=== PATIENT | female | born 1970 | race Caucasian/White ===

== ENCOUNTER 2017-07-07 14:32 | Emergency (ER) | payer SELFPAY ==
[~2017-07-07] VITALS: Ht 160 cm; Wt 50.0 kg
[2017-07-07 14:32] VITALS: BP 120/62; PULSE 100; RESP 20; TEMP 99.4; O2SAT 100
--- NOTE | 2017-07-07 16:46 | PD ---
HPI Chief Complaint: Cold / Flu Symptoms Time Seen by Provider: 16:31 Travel History International Travel<30 days: No Contact w/Intl Traveler<30days: No Traveled to known affect area: No History of Present Illness HPI 56 year old female presents to the emergency department complaining of a nonproductive cough, wheezing, shortness of breath since Monday. Reports chest tightness. Denies chest pain. Reports nasal congestion and throat irritation. Reports itchy ears. Denies ear pain. Reports fever of 102.0 and Monday. Reports body aches. Has history of bronchitis. Denies history of asthma or COPD. Has been taking Goody powder for symptom management. No known relieving or aggravating factors. No one else with similar symptoms. Discussed primary care provider. No known allergies. Denies significant past medical history. No other medical complaints. No other modifying factors or associated signs and symptoms. PFSH Past Medical History Anxiety: Yes Depression: Yes Medical other: Yes (PTSD) Tetanus Vaccination: Unknown Influenza Vaccination: No ?: Not Past Surgical History Appendectomy: Yes Cholecystectomy: Yes Hysterectomy: Yes Tonsillectomy: Yes Other Surgery: Yes (breast augmentation) Social History Alcohol Use: No Tobacco Use: Yes (/2 ppd) Substance Use: No Allergies-Medications (Allergen,Severity, Reaction): Coded Allergies: No Known Allergies (Unverified , 07/07/17) Reported Meds & Prescriptions Reported Meds & Active Scripts Active Tessalon Perles (Benzonatate) 100 Mg Cap 100 Mg PO TID PRN 3 Days Deltasone (Prednisone) 20 Mg Tab 40 Mg PO DAILY 4 Days start 07/08/2017 Ventolin Hfa 18 GM Inh (Albuterol Sulfate) 90 Mcg/Act Aer 2 Puff INH Q4-6H PRN Review of Systems Except as stated in HPI: all other systems reviewed are Neg Physical Exam Narrative GENERAL: Well-nourished, well-developed female patient, in no acute distress; afebrile, nontoxic-appearing SKIN: Warm and dry. HEAD: Atraumatic. Normocephalic. EYES: Pupils equal and round. No scleral icterus. No injection or drainage. ENT: Mucosa pink and moist. No erythema or exudates. No uvular edema. No uvular , palatal, or tonsillar deviation. Airway patent. Nares without nasal blood, purulent drainage. EARS: Bilateral pinnae and external canals appear within normal limits. Bilateral tympanic membranes without erythema, dullness or perforation. NECK: Trachea midline. No lymphadenopathy. CARDIOVASCULAR: Regular rate and rhythm. No murmur appreciated. RESPIRATORY: No accessory muscle use. Lungs with mild Wheezing throughout to auscultation. Breath sounds equal bilaterally. No retractions or tachypnea. No Audible wheezing noted. GASTROINTESTINAL: Abdomen soft, non-tender, nondistended. Hepatic and splenic margins not palpable. Bowel sounds are active 4 quadrants. MUSCULOSKELETAL: No obvious deformities. No clubbing. No cyanosis. No edema. NEUROLOGICAL: Awake and alert. Oriented 3. No obvious cranial nerve deficits. Motor grossly within normal limits. Normal speech. Moves all extremities. 5/5 strength to all extremities. PSYCHIATRIC: Appropriate mood and affect; insight and judgment normal. Data Data Last Documented VS Vital Signs Date Time Temp Pulse Resp B/P (MAP) Pulse Ox O2 Delivery O2 Flow Rate FiO2 07/07/17 19:25 07/07/17 18:47 99 21 07/07/17 17:58 3 07/07/17 17:17 105 Room Air 07/07/17 14:32 99.4 Orders Orders Chest, Single Ap (07/07/17 16:46) Prednisone (Deltasone) (07/07/17 17:00) Albuterol Neb (Albuterol Neb) (07/07/17 17:00) Ibuprofen (Motrin) (07/07/17 17:00) Ed Discharge Order (07/07/17 19:01) [facility] Medical Decision Making Medical Screen Exam Complete: Yes Emergency Medical Condition: Yes Medical Record Reviewed: Yes Differential Diagnosis Influenza, bronchitis, pneumonia Narrative Course 46-year-old female with cough/cold/flu symptoms since Monday. He is afebrile and nontoxic appearing. MAXIMUM TEMPERATURE 102.0. Chest x-ray, influenza, abdominal nebulizer, Deltasone, ibuprofen ordered. 1805: Chest x-ray with no acute cardiopulmonary disease. 1810: She reports improvement in symptoms. Denies chest pain or shortness of breath at this time. Lungs are clear and equal throughout with improved breath sounds. 1899: Instructed patient to follow up with primary care provider. Patient verbalizes understanding and agreement with treatment plan. Patient is medically cleared and stable for discharge. Discussed reasons to return to the emergency department. Patient agrees with treatment plan. The patients vital signs are stable and the patient is stable for outpatient follow-up and treatment. Patient discharged home, stable and in no acute distress. Diagnosis Primary Impression: Acute bronchitis Qualified Codes: J20.9 - Acute bronchitis, unspecified Referrals: [facility] Primary Care Physician Patient Instructions: Acute Bronchitis (ED), General Instructions, Safe Use of Cough and Cold Medicines (ED) Departure Forms: Tests/Procedures, Work Release Enter return to work date: Jul 08, 2017 Special Instructions: please excuse from meeting today Additional Instructions: Use Albuterol inhaler as prescribed Take oral steroids as prescribed and complete full course Use Tessalon Perles as prescribed to decrease coughing spasms [id number] decongestants or antihistamines as directed and as needed for symptom management Your cough can last 4-6 weeks Drink plenty of fluids to prevent dehydration Use hot air humidifier to decrease cough exacerbation Turn off ceiling fans and sleep with head of bed elevated Avoid triggers such as second hand smoke, dust, known allergens Follow-up with your primary care provider Return to the emergency department immediately with worsening of symptoms Med/Other Pt SpecificInfo: Prescription(s) given Scripts Benzonatate (Tessalon Perles) 100 Mg Cap 100 MG PO TID Y for COUGH for 3 Days, CAP 0 Refills Prov: Jolie London 07/07/17 Prednisone (Deltasone) 20 Mg Tab 40 MG PO DAILY for 4 Days, #8 TAB 0 Refills start 07/08/2017 Prov: Jolie London 07/07/17 Albuterol 18 GM Inh (Ventolin Hfa 18 GM Inh) 90 Mcg/Act Aer 2 PUFF INH Q4-6H Y for SOB/WHEEZING, #1 INHALER 0 Refills Prov: Jolie London 07/07/17 Disposition: 01 DISCHARGE HOME Condition: Stable Jolie London Jul 07, 2017 16:46
[2017-07-07] MEDS ORDERED: IBUPROFEN 800 MG TAB PO ONE (17:00)
[2017-07-07] MEDS ORDERED: RESP: ALBUTEROL 2.5 MG/3 ML NEB (SCH) INH ONE (17:00)
[2017-07-07] MEDS ORDERED: predniSONE 20 MG TAB PO ONE (17:00)
[2017-07-07 17:10] VITALS: PULSE 98; RESP 20; O2SAT 100
[2017-07-07 17:17] VITALS: BP 105/61; PULSE 105; RESP 22; O2SAT 99
--- NOTE | 2017-07-07 17:51 | RADRPT ---
EXAM DATE/TIME: 07/07/2017 17:21 [place] COMPARISON: No previous studies available for comparison. INDICATIONS : Flu symptoms for 5 days. MEDICAL HISTORY : None. SURGICAL HISTORY : None. ENCOUNTER: Initial ACUITY: 4 - 6 days PAIN SCORE: 7/10 LOCATION: all over FINDINGS: A single view of the chest demonstrates the lungs to be symmetrically aerated without evidence of mas s, infiltrate or effusion. The cardiomediastinal contours are unremarkable. Osseous structures are intact. CONCLUSION: 1. No acute cardiopulmonary disease. Anirudh Melvin MD on July 07, 2017 at 17:49 Board Certified Radiologist. This report was verified electronically.
[2017-07-07 17:58] VITALS: RESP 3
[2017-07-07] MEDS ORDERED: PRED-503 PO (18:07)
[2017-07-07] MEDS ORDERED: BENZ100 PO (18:07)
[2017-07-07] MEDS ORDERED: VENTAER INH (18:07)
[2017-07-07 18:47] VITALS: O2SAT 99
== END 2017-07-07 19:26 | disposition home or self-care (01) ==
LOC: NEPD 14:32
DX: J20.9 Acute bronchitis, unspecified (principal); R07.89 Other chest pain; F43.10 Post-traumatic stress disorder, unspecified; F17.200 Nicotine dependence, unspecified, uncomplicated; Z79.899 Other long term (current) drug therapy
CPT/HCPCS: 71010; 94640; 99285; J7512; J7613; 87804